=== PATIENT | male | born 1955 | race Caucasian/White ===

== ENCOUNTER → 2016-08-29 | Outpatient (CLI) | payer BC, OTHER | LOC: HYPER 06:59 | DX: T81.4XXA Infection following a procedure, initial encounter (principal); Z86.19 Personal history of other infectious and parasitic diseases; Z72.89 Other problems related to lifestyle; Y83.8 Other surgical procedures as the cause of abnormal reaction of the patient, or of later complication, without mention of misadventure at the time of the procedure ==

== ENCOUNTER → 2016-09-05 | Outpatient (CLI) | payer BC, OTHER | LOC: CAT 10:18 | DX: S31.109A Unspecified open wound of abdominal wall, unspecified quadrant without penetration into peritoneal cavity, initial encounter (principal) ==

== ENCOUNTER → 2016-09-10 | Outpatient (CLI) | payer BC, OTHER ==
[2016-09-10] VITALS (7 sets, daily range): BP systolic 101–122; BP diastolic 41–65
[~2016-09-10] VITALS: Ht 177.8 cm; Wt 96.2 kg
[~2016-09-10] MED LIST: CIPRO500 MG PO; FLAGYL500 MG PO; PANTOPRAZOLE SO40 M1 PO; PROTONIX40 M1 PO
[2016-09-10 13:13] LABS: ABSOLUTE NEUTROPHILS 3.7 thou/uL (1.4-8.2); BASOPHILS 1.2 % (0.0-2.0); EOSINOPHILS 1.2 % (0.0-3.0); HEMATOCRIT 34.4 % (42.0-52.0); HEMOGLOBIN 11.2 gm/dL (14.0-18.0); LYMPHOCYTES 28.3 % (24.0-44.0); MCH 28.2 pg (26.0-34.0); MCHC 32.7 g/dL (28.0-37.0); MCV 86.2 fL (80.0-100.0); MONOCYTES 9.2 % (1.0-8.0); PLATELET COUNT 374 thou/uL (150-400); POLYS 60.1 % (36.0-66.0); RDW 16.9 % (10.5-14.5); WBC 6.2 thou/uL (4.0-11.0)
[2016-09-10 13:21] LABS: MANUAL DIFF NO; PROTIME 10.7 Seconds (9.3-11.4)
[2016-09-10 13:23] LABS: CREATININE 0.9 mg/dL (0.7-1.3); POTASSIUM 3.8 mmol/L (3.5-5.1)
== END | disposition home or self-care (01) ==
LOC: CAT 12:39
PROVIDERS: Surgery
DX: L02.211 Cutaneous abscess of abdominal wall (principal); K21.9 Gastro-esophageal reflux disease without esophagitis; Z98.890 Other specified postprocedural states

== ENCOUNTER → 2016-09-13 | Outpatient (CLI) | payer BC, OTHER | LOC: SPEC 16:13 | DX: L02.211 Cutaneous abscess of abdominal wall (principal); Z98.890 Other specified postprocedural states ==

== ENCOUNTER → 2016-09-23 | Outpatient (CLI) | payer BC, OTHER ==
[2016-09-23] VITALS (14 sets, daily range): BP systolic 100–129; BP diastolic 47–66
[~2016-09-23] VITALS: Ht 177.8 cm; Wt 97.5 kg
== END | disposition home or self-care (01) ==
LOC: SPEC 09:49
DX: Z48.03 Encounter for change or removal of drains (principal); K21.9 Gastro-esophageal reflux disease without esophagitis; Z98.890 Other specified postprocedural states

== ENCOUNTER 2016-10-04 05:27 | Inpatient (IN) | payer BC, OTHER ==
[2016-10-04] VITALS (7 sets, daily range): BP systolic 101–124; BP diastolic 50–72
[~2016-10-04] VITALS: Ht 177.8 cm; Wt 97.1 kg
--- NOTE | ~2016-10-04 | HC ---
[facility] [place] [address] CONSULTATION Name: NAHUM NELSON Room #: 541-P ADM IN M.R.#: [id number] Admission: 10/04/16 Attend Phys: Sarah Bedolla MD, Discharge: Date of : 57 Report #: [id number] THIS REPORT FOR: //name// CC: FAM unknown Sarah Bedolla REASON FOR CONSULTATION: I was asked to evaluate concerning abdominal mesh infection with enterocutaneous fistula. HISTORY OF PRESENT ILLNESS: The patient is a 60-year-old who in May underwent a ventral hernia repair. He states this is the sixth repair that he has had due to multiple ventral hernias. Postoperatively, developed fever, abdominal pain and evidence of a draining sinus tract. He has been on multiple antibiotic courses. He has tried local wound care without improvement. Most recently was seen by Dr. Bedolla after being at the [facility]. Initial evaluation by CAT scan showed abdominal abscess. Drain was placed. There was evidence of infected abdominal wall mesh. He had complications with this drain and had to be further evaluated by Dr. Henriquez on 09/13/2016. He was unable to enlarge the drain size. Continued local wound care. Brought to surgery today while on ciprofloxacin and metronidazole for previous cultures that had revealed Enterobacter cloacae, E. coli, strep anginosus. The Enterobacter was sensitive to quinolones, gentamicin, imipenem, Bactrim, tetracycline. The E. coli was fully susceptible. Today, he underwent for exploratory laparotomy with extensive lysis of adhesions, debridement of the abdominal wall with excision of grossly contaminated synthetic mesh and necrotic abdominal wall tissue. He also underwent partial omentectomy, appendectomy, segmental small bowel resection x 7 with reanastomosis. He had a complex abdominal wall reconstruction with open repair of incarcerated incisional ventral hernia. Excision of scar and fistulous tract with tissue transfer and closure of the abdominal wall. There were no intraoperative complications and postoperatively has been stable. ALLERGIES: The patient reports allergy to PENICILLIN, ERYTHROMYCIN. He does tolerate amoxicillin and Augmentin. MEDICATIONS: As noted on his MAR including vancomycin, ciprofloxacin and metronidazole. PAST MEDICAL HISTORY: Significant for the above noted surgeries. He was treated for hepatitis B. The patient states hepatitis C and HIV were negative. He also has gastroesophageal reflux. FAMILY HISTORY: Noncontributory. SOCIAL HISTORY: Nonsmoker, moderate alcohol intake. He is single. REVIEW OF SYSTEMS: No cardiopulmonary, , joint, skin issues. [address] [address] CONSULTATION Name: NAHUM NELSON Room #: 541-P [facility] IN ..#: [id number] Admission: 10/04/16 Attend Phys: Sarah Bedolla MD, Discharge: Date of : 57 Report #: [id number] PHYSICAL EXAMINATION: VITAL SIGNS: Afebrile and hemodynamically stable. GENERAL: He is alert and cooperative, a bit lethargic from his surgery. SKIN: Unremarkable. LYMPH: Unremarkable. HEENT: Unremarkable. CHEST: Clear. HEART: Regular. ABDOMEN: It was postoperative with drains in place. He was diffusely tender. EXTREMITIES: Unremarkable. Indwelling Real catheter. LABORATORY STUDIES: Hemoglobin 11, sodium 137, potassium 3.8, creatinine 0.9. Liver function test normal. 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 PLAN: We would recommend vancomycin and meropenem postoperatively. We will await final cultures from operating room. <ELECTRONICALLY SIGNED> By: Scott Freedman MD 10/07/16 [id number] Scott Freedman MD /nt
--- NOTE | ~2016-10-04 | S ---
[facility] [place] [address] SURGICAL PATH RPT PROCEDURE Name: NAHUM NELSON Room #: 541-P [facility] IN M.R.#: [id number] Admission: 10/04/16 Date of : 57 Discharge: 10/08/16 Report #: [id number] Path Case #: [id number] PATHOLOGY REPORT COLLECTION DATE: 10/04/2016 RECEIVED DATE: 10/04/2016 SUBMITTING PHYS: Dr. Sarah Bedolla OTHER PHYS: Dr. Pascual Nayak SPECIMEN(S) RECEIVED: A.Abdominal scar B.Intra abdominal mesh C.Appendix D.Proximal ileum E.Mid ileum F.Distal ileum G.Proximal jejunum H.Mid jejunum I.Distal jejunum J.Omentum K.Additional jejunum L.Abdominal wall * * * * * * * * * * * * FINAL DIAGNOSIS: A. "Abdominal scar", excision/debridement: - Skin and subcutaneous tissue with acute and chronic inflammation, necrosis, granulation tissue, fibrosis and pseudoepitheliomatous hyperplasia. B. "Intra-abdominal mesh", removal: - Foreign body consistent with synthetic mesh. (gross examination only) C. "Appendix", appendectomy: - Appendix with focal mucosal serrated adenoma within the appendiceal tip; no dysplasia seen; margins free of adenoma. D. "Proximal ileum", resection: - Small bowel mucosa, submucosa and muscular wall with focal mucosal mild ischemic changes and serosal surface showing reactive changes and dense fibrous adhesions. - Serosal deposit with colonic mucosa showing ischemic changes within a dense serosal fibrous adhesion. (see comment) E. "Mid ileum", resection: - Small bowel mucosa, submucosa and muscular wall with serosal reactive changes including marked mesothelial hyperplasia, fibrosis, acute and chronic inflammation, necrosis and dense fibrous adhesions. F. "Distal ileum", resection: - Small bowel mucosa, submucosa and muscular wall with serosa showing [facility] [address] [place] [address] SURGICAL PATH RPT PROCEDURE Name: NAHUM NELSON Room #: 541-P DIS IN ..#: [id number] Admission: 10/04/16 Date of : 57 Discharge: 10/08/16 Report #: [id number] Path Case #: [id number] reactive changes including marked mesothelial hyperplasia, fibroblastic proliferation, acute and chronic inflammation, foreign body-type granulomas containing polarizable material and dense fibrous adhesions. G. "Proximal jejunum", resection: - Small bowel mucosa, submucosa and muscular wall with serosa showing mild reactive changes including edema and reactive mesothelial hyperplasia. H. "Mid jejunum", resection: - Small bowel mucosa, submucosa and muscular wall with serosa showing reactive changes including marked mesothelial hyperplasia, edema, acute and chronic inflammation, necrosis, granulation tissue and dense fibrous adhesions; significant inflammation involving the proximal resection margin. I. "Distal jejunum", resection: - Small bowel mucosa, submucosa and muscular wall with focal mucosal mild ischemic changes and serosa showing reactive changes including reactive mesothelial hyperplasia, edema and acute and chronic inflammation. J. "Omentum", omentectomy: - Omentum (23.7 cm) showing mature adipose tissue, fibrosis, reactive mesothelial hyperplasia and vascular congestion. K. "Additional jejunum", resection: - Small bowel mucosa, submucosa and muscular wall with serosa showing reactive changes including mesothelial hyperplasia, fibrosis, edema, acute and chronic inflammation and dense fibrous adhesions; significant inflammation involving the proximal resection margin. L. "Abdominal wall", excision/debridement: - Fibroadipose connective tissue with dense fibrosis, fibroblastic proliferation, acute and chronic inflammation, necrosis, granulation tissue and marked reactive mesothelial hyperplasia. (CLW:db; 10/08/2016) COMMENT: Within specimen D, the serosal deposit showing ischemic colonic mucosa may represent an enterocolic fistula and/or a partially sampled enterocutaneous fistula. If there is no evidence of colonic defects, a more serious lesion cannot be entirely excluded. The clinical significance is unclear. Clinical, radiographic and operative correlation is required. The case is co-reviewed with Dr. Janett Galarza. Part C is also co-reviewed with Dr. Rosemary Heath. PATHOLOGIST: Greta Marcelo M.D. REPORT ELECTRONICALLY SIGNED BY: Greta Marcelo M.D. DATE/TIME: 10/09/2016 15:58 * * * * * * * * * * * * [address] [address] SURGICAL PATH RPT PROCEDURE Name: NAHUM NELSON Room #: 541-P DIS IN M.R.#: [id number] Admission: 10/04/16 Date of : 57 Discharge: 10/08/16 Report #: [id number] Path Case #: [id number] GROSS PATHOLOGY: A. The specimen is received in formalin labeled "Nahum Nelson, old abdominal scar". Received is an irregular excision of pale york skin with attached white-york fibroadipose tissue measuring 14.8 x 2.7 x 2.2 cm in greatest mentions. The epidermal surface displays a linear well-healed scar measuring 8.5 cm in length by up to 0.5 cm in diameter. Sectioning reveals yellow-york cut surfaces throughout with no grossly distinct nodules or lesions. The specimen is submitted representatively in cassette A1. B. The specimen is received in formalin labeled "Nahum Nelson, intra-abdominal mesh". Received is a segment of light york mesh material measuring 20.2 x 15.5 x 0.1 cm in greatest dimensions. A gross photograph is taken. Sections are not submitted. C. Received in formalin labeled "Nahum Nelson, appendix," is an appendix measuring 4.3 cm in length and 0.8 cm in diameter with a moderate amount of attached mesoappendix. The serosal surface is pale york and grossly unremarkable. Sectioning reveals a pinpoint to patent lumen filled with a slight amount of fecal material. [employer] sections are submitted in cassette C1. (CAA; 10/05/2016) After initial microscopic examination, the remainder the appendix is submitted from proximal to distal aspects in cassettes C2 and C3. (CAA; 10/07/2016) D. The specimen is received in formalin labeled "Nahum Youngoon, proximal ileum, suture at distal end". Received is an oriented segment of small bowel measuring 3.8 cm in length by 3.3 cm in diameter. Both margins are stapled closed and a suture is present at one margin designating this as the distal aspect. The serosal surface is pink-tiwari in appearance with adherent tiwari-york fibrous soft tissue. The attached mesenteric fat measures 1.2 cm in thickness. Opening the specimen reveals pink-york to light york mucosa with normal architectural folds. No distinct nodules or lesions are noted grossly. The specimen is submitted representatively as follows: D1 proximal margin D2 distal margin D3 off premise service representative cross-sections of mucosa to include overlying fibrous soft tissue. E. The specimen is received in formalin labeled "Nahum McLoon, mid ileum, suture at distal end". Received is an oriented segment of small bowel measuring 8.5 cm in length by 2.8 cm in diameter. Both margins are stapled closed and a suture is present at one margin designating this as the distal aspect. The serosal surface is pink-york appearance with a moderate amount of overlying adhesions and a slight amount of attached tiwari-york fibrous soft tissue. The attached mesenteric fat measures 1.6 cm in thickness. The specimen is opened along the antimesenteric line to reveal light york mucosa with normal architectural folds. No distinct nodules or lesions are noted grossly. The specimen is submitted representatively as follows: [address] [address] SURGICAL PATH RPT PROCEDURE Name: NAHUM NELSON Room #: 541-P DIS IN M.R.#: [id number] Admission: 10/04/16 Date of : 57 Discharge: 10/08/16 Report #: [id number] Path Case #: [id number] E1 proximal margin E2 distal margin E3 off premise service representative cross-sections of mucosa to include overlying fibrous soft tissue. F. The specimen is received in formalin labeled "Nahum Nelson, distal ileum, suture at distal end". Received is U-shaped oriented segment of small bowel measuring 15.5 cm in length by 3.5 cm in diameter. Both margins are stapled closed and a suture is present at one margin designating this as the distal aspect. The serosal surface is pink-tiwari in appearance with a moderate amount of overlying adhesions and adherent tiwari-york fibrous soft tissue. The attached mesenteric fat measures up to 2.5 cm in thickness. The specimen is opened along the antimesenteric line to reveal light york mucosa with normal architectural folds. No distinct nodules or lesions are noted grossly. The specimen is submitted representatively as follows: F1 proximal margin F2 distal margin F3 off premise service representative cross-sections of mucosa to include overlying fibrous soft tissue. G. The specimen is received in formalin labeled "Nahum Nelson, proximal jejunum, suture at distal end". Received is an oriented segment of small bowel measuring 10.8 cm in length by 3.0 cm in diameter. Both margins are stapled closed and a suture is present at one margin designating this as the distal aspect. The serosal surface is pink-tiwari in appearance with a moderate amount of overlying adhesions. The attached mesenteric fat measures 2.2 cm in thickness. The specimen is opened along the antimesenteric line to reveal light york mucosa with normal architectural folds. No distinct nodules or lesions are noted grossly. The specimen is submitted representatively as follows: G1 proximal margin G2 distal margin G3 off premise service representative cross-sections of mucosa. H. The specimen is received in formalin labeled "Nahum Nelson, mid jejunum, suture at distal end". Received is an oriented segment of small bowel measuring 6.5 cm in length by 2.7 cm in diameter. Both margins are stapled closed and a suture is present at one margin designating this as the distal aspect. The serosal surface is pink-tiwari in appearance with a slight amount of overlying adhesions. The attached mesenteric fat measures up to 3.6 cm in thickness. Specimen is opened along the antimesenteric line to reveal light york mucosa with normal architectural folds. No distinct nodules or lesions are noted grossly. The specimen is submitted representatively as follows: H1 proximal margin H2 distal margin H3 off premise service representative cross-sections of mucosa. [address] [address] SURGICAL PATH RPT PROCEDURE Name: NAHUM NELSON Room #: 541-P DIS IN M.R.#: [id number] Admission: 10/04/16 Date of : 57 Discharge: 10/08/16 Report #: [id number] Path Case #: [id number] I. The specimen is received in formalin labeled "Nahum McLoon, distal jejunum, suture at distal end". Received is an oriented segment of small bowel measuring 9.3 cm in length by 3.1 cm in diameter. The margins are stapled closed and a suture is present at one margin designating this as the distal aspect. The serosal surface is pink-tiwari in appearance with a slight amount of overlying adhesions. The attached mesenteric fat measures 2.2 cm in thickness. The specimen is opened along the antimesenteric line to reveal pink-york mucosa with normal architectural folds. No distinct nodules or lesions are noted grossly. The specimen is submitted representatively as follows: I1 proximal margin I2 distal margin I3 off premise service representative cross-sections of mucosa. J. The specimen is received in formalin labeled "Nahum McLoon, omentum". Received is a segment of yellow-york omentum measuring 23.7 x 7.3 x 3.8 cm in greatest dimensions. Sectioning reveals bright yellow, lobulated cut surfaces with no grossly apparent nodules or lesions. The specimen is submitted representatively in cassette J1. K. The specimen is received in formalin labeled "Nahum McLoon, additional jejunum, suture at distal end". Received is an oriented segment of small bowel measuring 4.0 cm in length by 2.5 cm in diameter. Both margins are stapled closed and a suture is present at one margin designating this as the distal aspect. The serosal surface is pink-tiwari in appearance with slight amount of overlying adhesions and adherent tiwari-york brown fibrous soft tissue. The mesenteric fat measures 1.2 cm in thickness. The specimen is opened along the antimesenteric line to reveal light york mucosa with normal architectural folds. No distinct nodules or lesions are noted grossly. The specimen is submitted representatively as follows: K1 proximal margin K2 distal margin K3 off premise service representative cross-sections of mucosa to include overlying soft tissue. L. The specimen is received in formalin labeled "Nahum Nelson, abdominal wall". Received are multiple segments of pink-york, firm fibrous tissue admixed with yellow-york lobulated tissue measuring 8.5 x 6.5 x 2.8 cm in aggregate dimensions. The specimen is submitted representatively in cassette L1. (CAA; 10/05/2016) CLINICAL HISTORY: Ventral hernia, abdominal wall abscess INITIAL CPT CODE(S): A; 65465 B; [address] [address] SURGICAL PATH RPT PROCEDURE Name: NAHUM NELSON Room #: 541-P [facility] IN M.R.#: [id number] Admission: 10/04/16 Date of : 57 Discharge: 10/08/16 Report #: [id number] Path Case #: [id number] C; [id number] D; [id number] E; [id number] F; [id number] G; 28326 H; 86102 I; [id number] J; 00946 K; 25318 L; 26866 Professional services performed by [facility] at [address] , [place] [address] Technical services performed by [facility] at [address] [place] [address], [facility] [address], [place] [address]. [facility] [address] [address] PHONE: [phone] DIRECTOR: Stas Dominique M.D. * * * END OF REPORT * * *
--- NOTE | ~2016-10-04 | O ---
[facility] [address] [place] [address] OPERATIVE REPORT Name: NAHUM NELSON A Room #: 541-P ADM IN M.R.#: [id number] Admission: 10/04/16 Attend Phys: Sarah Bedolla MD, Discharge: Date of : 57 Report #: [id number] THIS REPORT FOR: //name// CC: FAM unknown Sarah Bedolla DATE OF SERVICE: 10/04/2016 PREOPERATIVE DIAGNOSES: 1. Nonhealing post-surgical abdominal wall wound. 2. Infected indwelling hernia mesh. 3. 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 4. Chronic debilitating abdominal pain. POSTOPERATIVE DIAGNOSES: 1. Nonhealing post-surgical abdominal wall wound. 2. Infected indwelling hernia mesh. 3. Numerous enterocutaneous fistulae. 4. Chronic debilitating abdominal pain. PROCEDURES PERFORMED: 1. Exploratory laparotomy. 2. Extensive lysis of adhesions lasting 142 minutes. 3. Debridement of necrotic abdominal wall fascia with explantation of grossly infected synthetic mesh. 4. Partial omentectomy. 5. Appendectomy. 6. Segmental small-bowel resections times 7 with reanastomosis. 7. Complex abdominal wall reconstruction with open repair of an incarcerated recurrent incisional ventral hernia. 8. Bilateral component separation of the anterior abdominal wall. 9. Adjacent tissue transfer closure of the anterior abdominal wall measuring 42 x 36 cm in dimension (1512 square cm). 10. Excision of scar/fistula tract and excess skin from the anterior abdominal wall. 11. Placement of a topical wound VAC device (Prevena). 12. This is a modifier 22 procedure for extreme difficulty of procedure secondary to the extensive lysis of adhesions necessary of nearly 2-1/2 hours coupled with the grossly infected synthetic mesh that required explantation and complex abdominal wall reconstruction techniques for closure of the abdominal wall and the resultant incarcerated incisional ventral hernia. Total operative time was nearly 5 hours as opposed to the usual 60-90 minute procedure. SURGEON: Sarah Bedolla MD AUTOMATIC PATTERN EDGER: Pascual Nayak MD [address] [address] OPERATIVE REPORT Name: NAHUM NELSON A Room #: 541-P [facility].#: [id number] Admission: 10/04/16 Attend Phys: Sarah Bedolla MD, Discharge: Date of : 57 Report #: [id number] ANESTHESIA: General endotracheal anesthesia. ESTIMATED BLOOD LOSS: 300 mL. COMPLICATIONS: None appreciated. SPECIMENS: 1. Segments of small-bowel times 7 with sutures marking distal. 2. Debrided abdominal wall tissue and mesh. 3. Appendix. 4. Culture swabs to microbiology. 5. Excised skin and fistula tract to pathology. COMPLICATIONS: None appreciated. INDICATIONS: The patient is a 60-year-old male with a history of numerous incisional ventral hernia repairs with mesh who most recently underwent an open hernia repair 4-1/2 months ago at [facility]. Nearly immediately postoperatively, the patient had evidence of a nonhealing wound draining purulent foul smelling material through his abdominal wall and he has been treated conservatively since that time. The patient was growing frustrated and saw me in consultation for a second opinion where he had evidence of open wound draining foul smelling purulent material that appeared feculent and I obtained his prior operative report showing he has indwelling synthetic mesh in place. I did obtain a CT scan showing an undrained abscess, which underwent percutaneous drainage times 2 and as we were able to divert the drainage through the abdominal wall wound and out the percutaneous drains, indication was now for definitive management with reexploration, explantation of his grossly infected mesh and definitive surgery for what was found intraabdominally. As such, indication was for the above-mentioned procedures today. PROCEDURE: After explaining the risks, benefits, and alternatives of the procedure with the patient in detail and obtaining consent, the patient was brought to the operating room and placed supine on the operating room table. After conducting a thorough time-out procedure, verifying correct patient and procedure, the patient was given general endotracheal anesthesia. Once adequate anesthesia was obtained, his SCDs were hooked up to pneumatic compression device and he was given a preoperative dose of antibiotics in line with the SCIP protocol following his recent culture results. The patient's abdomen was now prepped and draped in standard surgical sterile fashion. A #10 bladed scalpel was used to create an elliptical incision around his open nonhealing wound. It should be noted I did put a single ztrqyc-tk-fhkjt suture using 2-0 silk through this area before prepping to prevent contamination intraoperatively. Once I had created the elliptical incision longitudinally around his scar and nonhealing wound, electrocautery was used to carry this down through skin and subcutaneous [address] [address] OPERATIVE REPORT Name: NAHUM NELSON Room #: 541-P [facility] IN M.R.#: [id number] Admission: 10/04/16 Attend Phys: Sarah Bedolla MD, Discharge: Date of : 57 Report #: [id number] tissues to ensure hemostasis. Once I arrived upon the anterior aspect of the abdominal wall, attempts were made to gain intra-abdominal access, which was extremely difficult secondary to the intense inflammatory response and scarring taking place from the grossly infected mesh. As the patient did have mesh in place, I proceeded to open the fascia down the midline into the space between the fascia and the mesh with evidence of grossly foul smelling purulent and feculent discharge. Culture swabs were taken and sent to microbiology. At this juncture not knowing what was stuck to the back side of mesh, I proceeded to open the fascia down the midline as far inferiorly as possible, being cognizant not to get too load enter into the bladder. I was then able to place a finger into the abdomen well below where the boundaries of the mesh were and proceeded to open the midline wound using curved Baig scissors to bisect the mesh safely after peeling all intra-abdominal contents off of the back side of mesh. Now that I had opened the wound down the midline, I proceeded to debride necrotic abdominal wall fascia as well as remove the infected mesh using electrocautery. All synthetic material encountered was passed off the field as specimen along with necrotic fascia. There was a large tongue of omentum plastered low in the pelvis and as such the EnSeal X1 device was used to transect this for hemostasis, which allowed me to remove this and passed it off the field as well. I continued my extensive lysis of adhesions, which ultimately lasted 142 minutes to take down all adhesions throughout the intra-abdominal domain. What we ultimately arrived upon were numerous segments of small-bowel intimately plastered to one spot that was draining to the synthetic mesh that upon resecting the mesh entered into the bowel and I used a single 3-0 PDS suture in a vhihgs-ih-phncu fashion to prevent gross contamination intraabdominally. I now proceeded to evaluate the intra-abdominal domain in systematic fashion. The stomach was evaluated and was healthy. The duodenum was healthy to the ligament of Treitz. There was approximately 180 cm of healthy bowel distal to the ligament of Treitz until we arrived upon the first area of bowel plastered to the fistulous communication. At this juncture, I proceeded to perform segmental small-bowel resection using electrocautery to make windows on either side of the mesentery and then firing a linear stapler that measured 75 mm in length and used blue loads. This allowed me to transect the bowel at each spot that was fistulized as it was impossible to tell where the loops of bowel were running. Distally, there was 100 cm of healthy small-bowel to the ileocecal valve and the colon appeared healthy throughout as well. The appendix was firm, especially at its tip and hyperinjected consistent with a possible mucocele and as such, I did perform an appendectomy at this juncture. A Rojas clamp was used to elevate the appendix and a window was made near the base of the appendix with electrocautery and the appendix was stapled off using another firing of the STEFANIE blue load 75 mm stapler. I did elect to oversew the appendiceal stump using a single suture of 3-0 PDS in standard bwpnky-he-ebnal fashion to perform a Z-stitch. Now that I had stapled off the segments of bowel and had done the appendectomy, I elevated the fistulous area and transected it with the EnSeal X1 device. Upon doing so, it left 7 separate segments of small-bowel that were short in length after we were now able to fully evaluate them. This led to [address] [address] OPERATIVE REPORT Name: NAHUM NELSON A Room #: 541-P [facility] IN M.R.#: [id number] Admission: 10/04/16 Attend Phys: Sarah Bedolla MD, Discharge: Date of : 57 Report #: [id number] segmental small-bowel resections; however, some were in continuity with one another and ultimately I performed 2 stapled intra-abdominal anastomoses. These anastomoses were performed by aligning the segments of bowel that were in continuity in a kzcj-gx-umwe functional end-to-end fashion and placing a single suture of 3-0 PDS on the antimesenteric aspect to hold them in alignment. The antimesenteric corners of the staple lines were removed with curved Baig scissors and another firing of the STEFANIE blue load 75 mm stapler was used to carry out the anastomosis by placing each limb of the stapler down the enterotomies clamping and firing. The common enterotomies were then elevated with Allis clamps and were closed using a TX 60 stapler with a blue load and excess anastomotic tissue was removed with a #10 bladed scalpel. Digital finger palpation of both anastomoses showed them to be widely patent. I placed a single suture of 3-0 PDS in the crotch of the staple line to act as an anti-tension sutures. I then closed the mesenteric defect using running 3-0 PDS in standard fashion. Each of the TX staple loads were then oversewn using numerous interrupted 3-0 PDS sutures in standard Lembert interrupted fashion. Now that I had resected all of the grossly infected material and removed the sites of enterocutaneous fistula formation as well as cleaned off the abdominal wall, we turned our attention to evaluation of the recurrent incisional ventral hernia defect itself. The abdominal wall, especially on the patient's left side was extremely thickened, edematous and inflamed measuring 6 cm in thickness. On the right side, it measured 4 cm in thickness and the outset had grossly purulent feculent discharge. This was difficult to bring together at the midline and as such, I created large flaps externally along the level of the fascia circumferentially with electrocautery to allow for an external component separation release on both sides. There was no way to perform a transversus release due to the significant inflammation in the abdominal wall itself. Once I had created the flaps circumferentially maintaining all perforating vessels we encountered throughout, I proceeded to perform a bilateral component separation technique of the external oblique aponeurosis by scoring along the lateral border of the rectus abdominis muscles bilaterally with electrocautery as far as I can take it in craniocaudal direction. This allowed me significant medial mobilization of the fascial edges to where I can bring them together at the midline without tension. At this juncture, a thorough discussion was held and I elected to not repair this midline defect with biologic or bioresorbable mesh as he almost certainly will develop wound infection and that simply adds a risk for postoperative inflammatory process. I had counseled the patient preoperatively that we may primarily repair this to allow all the infection and inflammation to subside and if he should recur again, we would tree that definitively one final time with standard techniques using mesh at that time. As such, I proceeded to close the midline fascial wound using looped #1 PDS suture in standard running fashion using 2 separate sutures, the first running from inferior to superior aspects and the second running from superior to inferior. When the sutures met at the midline, they were tied together. The wound was now copiously irrigated as It should be also noted that I irrigated the intra-abdominal domain with 3 liters of normal saline, which ran clear throughout. Now that I had irrigated [address] [address] OPERATIVE REPORT Name: NAHUM NELSON A Room #: 541-P [facility] IN M.R.#: [id number] Admission: 10/04/16 Attend Phys: Sarah Bedolla MD, Discharge: Date of : 57 Report #: [id number] the subcutaneous flaps with the liter of normal saline, which ran clear, I did have to perform adjacent tissue transfer closure of the anterior abdominal wall as the scar and fistulous tract that had been resected at the outset left a sizeable defect. As such, relaxing incisions were made internally using electrocautery to allow vascularized pedicles of subcutaneous tissue to be rotated medially. These were anchored into position using numerous interrupted inverted 3-0 Vicryl sutures for the deep layers as well as the dermal layer. The skin was brought together with some difficulty; however, the adjacent tissue transfer closure allowed for the skin edges to be approximated without significant tension. As numerous 3-0 Vicryl sutures were placed throughout the midline wound, I did elect to place one single 15-Indonesian round Scott-Cramer drain in the subcutaneous space to hopefully prevent seroma formation or infection. This was brought out through a suprapubic stab incision and anchored to the skin using 2-0 nylon in standard fashion. Now that this existed in the subcutaneous space with the 3-0 Vicryl sutures anchoring the adjacent tissue transfer closure over top, I closed the skin using skin raza and then applied a topical wound VAC Prevena device in standard fashion. At the end of the procedure, all instrument, needle and sponge counts were correct. The patient tolerated the lengthy procedure without incident, was awakened in the operating room and transitioned to the recovery room in stable condition with no apparent complications. <ELECTRONICALLY SIGNED> By: Sarah Bedolla MD, FACS 10/08/16 0822 [id number] Sarah Bedolla MD, FACS /nt
--- NOTE | ~2016-10-04 | EKG ---
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 : 1955 Requested By: Sarah Bedolla Order Number: [id number] MD: Paulo Machado Measurements Intervals [place] Rate: 69 P: -26 ME: 197 QRS: -32 QRSD: 107 T: 15 QT: 432 QTc: 463 Interpretive Statements Sinus rhythm Atrial premature complexes Left ventricular hypertrophy No previous ECG available for comparison Electronically Signed On 10-04-2016 9:04:44 CDT by Paulo Machado [email or web address] <ELECTRONICALLY SIGNED> By: Paulo Machado MD, [facility] 10/04/16 0904 0640 06 Paulo Machado MD, FACC /EPI
[2016-10-04 06:46] LABS: HEMATOCRIT 35.4 % (42.0-52.0); HEMOGLOBIN 11.8 gm/dL (14.0-18.0)
[2016-10-04 06:56] LABS: CALCIUM 8.9 mg/dL (8.5-10.1); CREATININE 0.9 mg/dL (0.7-1.3); POTASSIUM 3.8 mmol/L (3.5-5.1)
[2016-10-04 07:01] LABS: ALBUMIN 3.1 g/dL (3.4-5.0); TOTAL BILIRUBIN 0.3 mg/dL (<0.1-1.0); TOTAL PROTEIN 7.3 g/dL (6.4-8.2)
[2016-10-05 00:48] VITALS: BP 120/55
[2016-10-05 03:37] VITALS: BP 129/48
[2016-10-05 04:06] LABS: HIV ANTIBODY Non Reactive (Non Reactive)
[2016-10-05 04:25] LABS: HEMATOCRIT 27.8 % (42.0-52.0); MCH 28.2 pg (26.0-34.0); MCHC 33.5 g/dL (28.0-37.0); RBC 3.31 mil/uL (4.50-6.00); RDW 16.4 % (10.5-14.5); WBC 10.5 thou/uL (4.0-11.0)
[2016-10-05 04:36] LABS: HEMOGLOBIN 9.3 gm/dL (14.0-18.0)
[2016-10-05 04:42] LABS: CALCIUM 8.1 mg/dL (8.5-10.1); CREATININE 0.9 mg/dL (0.7-1.3); POTASSIUM 4.6 mmol/L (3.5-5.1)
[2016-10-05 08:00] VITALS: BP 124/61
[2016-10-05 16:00] VITALS: BP 126/72
[2016-10-05 20:00] VITALS: BP 117/57
[2016-10-06 06:10] VITALS: BP 121/50
[2016-10-06 08:00] VITALS: BP 131/49
[2016-10-06 08:32] LABS: ABSOLUTE NEUTROPHILS 5.9 thou/uL (1.4-8.2); BASOPHILS 0.6 % (0.0-2.0); HEMATOCRIT 24.5 % (42.0-52.0); HEMOGLOBIN 8.2 gm/dL (14.0-18.0); MANUAL DIFF NO; MCH 28.2 pg (26.0-34.0); MCHC 33.3 g/dL (28.0-37.0); MCV 84.8 fL (80.0-100.0); MONOCYTES 7.1 % (1.0-8.0); PLATELET COUNT 224 thou/uL (150-400); POLYS 73.3 % (36.0-66.0); RBC 2.89 mil/uL (4.50-6.00); RDW 16.5 % (10.5-14.5); WBC 8.1 thou/uL (4.0-11.0)
[2016-10-06 09:04] LABS: CALCIUM 8.2 mg/dL (8.5-10.1); CREATININE 0.8 mg/dL (0.7-1.3); POTASSIUM 3.9 mmol/L (3.5-5.1)
[2016-10-06 23:05] VITALS: BP 154/62
[2016-10-07 04:10] LABS: ABSOLUTE NEUTROPHILS 5.5 thou/uL (1.4-8.2); BASOPHILS 0.3 % (0.0-2.0); EOSINOPHILS 4.1 % (0.0-3.0); HEMATOCRIT 24.9 % (42.0-52.0); HEMOGLOBIN 8.4 gm/dL (14.0-18.0); LYMPHOCYTES 19.8 % (24.0-44.0); MANUAL DIFF NO; MCH 28.4 pg (26.0-34.0); MCHC 33.7 g/dL (28.0-37.0); MCV 84.4 fL (80.0-100.0); MONOCYTES 6.6 % (1.0-8.0); PLATELET COUNT 233 thou/uL (150-400); POLYS 69.2 % (36.0-66.0); RBC 2.95 mil/uL (4.50-6.00); RDW 16.4 % (10.5-14.5); WBC 7.9 thou/uL (4.0-11.0)
[2016-10-07 04:22] LABS: CALCIUM 8.2 mg/dL (8.5-10.1); CREATININE 0.8 mg/dL (0.7-1.3); POTASSIUM 3.6 mmol/L (3.5-5.1)
[2016-10-07 06:31] VITALS: BP 114/58
[2016-10-07 07:23] VITALS: BP 141/58
[2016-10-07 19:15] VITALS: BP 127/45
== END 2016-10-08 08:40 | DRG 327 ==
LOC: TBA 05:27 → OR 05:27 → TBA 05:28 → OR 09:42 → 5S 14:48
PROVIDERS: Specialist; Surgery
PROC: 0HB7XZZ Excision of Abdomen Skin, External Approach (ICD-10-PCS; 2016-10-04)
PROC: 0WJP0ZZ Inspection of Gastrointestinal Tract, Open Approach (ICD-10-PCS; 2016-10-04)
PROC: 5A1935Z Respiratory Ventilation, Less than 24 Consecutive Hours (ICD-10-PCS; 2016-10-04)
PROC: 0BH17EZ Insertion of Endotracheal Airway into Trachea, Via Natural or Artificial Opening (ICD-10-PCS; 2016-10-04)
PROC: 0DBS0ZZ (ICD-10-PCS; 2016-10-04)
PROC: 0WUF0JZ Supplement Abdominal Wall with Synthetic Substitute, Open Approach (ICD-10-PCS; 2016-10-04)
PROC: 0DN60ZZ Release Stomach, Open Approach (ICD-10-PCS; 2016-10-04)
PROC: 0JX80ZZ Transfer Abdomen Subcutaneous Tissue and Fascia, Open Approach (ICD-10-PCS; 2016-10-04)
PROC: 0DBT0ZZ (ICD-10-PCS; 2016-10-04)
PROC: 0DTB0ZZ Resection of Ileum, Open Approach (ICD-10-PCS; 2016-10-04)
PROC: 0DTJ0ZZ Resection of Appendix, Open Approach (ICD-10-PCS; 2016-10-04)
PROC: 0DTA0ZZ Resection of Jejunum, Open Approach (ICD-10-PCS; 2016-10-04)
PROC: 0JB80ZZ Excision of Abdomen Subcutaneous Tissue and Fascia, Open Approach (ICD-10-PCS; 2016-10-04)
PROC: 5A12012 Performance of Cardiac Output, Single, Manual (ICD-10-PCS; principal; 2016-10-08)
DX: K43.6 Other and unspecified ventral hernia with obstruction, without gangrene (principal); K63.2 Fistula of intestine; L02.211 Cutaneous abscess of abdominal wall; K21.9 Gastro-esophageal reflux disease without esophagitis; G89.29 Other chronic pain; K66.0 Peritoneal adhesions (postprocedural) (postinfection); Z79.899 Other long term (current) drug therapy; Z88.0 Allergy status to penicillin; Z88.1 Allergy status to other antibiotic agents; Z86.19 Personal history of other infectious and parasitic diseases; Z90.49 Acquired absence of other specified parts of digestive tract
CPT/HCPCS: 10785; 50010; 50093; 50101; 50331; 50386; 50953; 51412; 51435; 51708; 51712; 56525; 56527; 56528; 56530; 56639; 56771; 57092; 62110; 62900; 70005